=== PATIENT | male | born 1975 | race Caucasian/White ===

== ENCOUNTER → 2024-01-10 | Outpatient (CLI) | payer BC ==
--- NOTE | 2024-01-12 17:58 | US ---
EXAMINATION TYPE: US kidneys/renal and bladder DATE OF EXAM: 01/10/2024 COMPARISON: NONE CLINICAL INDICATION: Male, 48 years old with history of R71.8 OTHER ABNORMALITY OF RED BLOOD CELLS; M icroscopic hematuria. Hx renal stones. Patient states having hx of hydronephrosis. EXAM MEASUREMENTS: Right Kidney: cm Left Kidney: cm Right Kidney: Possible dilated renal pelvis Left Kidney: Possible dilated renal pelvis, renal sinus cyst versus dilated renal pyramid = 2.2 x 2.3 x 1.9 cm. Bladder: distended, anechoic Bilateral Jets seen There is no evidence for hydronephrosis at this point in time. Bilateral extrarenal pelvises. Left re nal sinus cyst versus dilated renal pyramid. No nephrolithiasis is seen. Cortical medullary different iation is maintained bilaterally. No solid masses are identified. The urinary bladder is anechoic a nd distended. Bilateral ureteral jets are seen. IMPRESSION: 1. No overt hydronephrosis or nephrolithiasis. 2. Bilateral extrarenal pelvises with a left renal sinus cyst versus dilated renal pyramid. If prior imaging could be made available, a comparison can be made. This can be further evaluated with CT urog missael.
== END | disposition home or self-care (01) ==
LOC: RADUSWWP 11:10
PROVIDERS: ATTEND Family Medicine
DX: N28.1 Cyst of kidney, acquired (principal); R71.8 Other abnormality of red blood cells
CPT/HCPCS: 76770

== ENCOUNTER → 2024-02-10 | Outpatient (CLI) | payer BC ==
--- NOTE | 2024-02-10 14:28 | CT ---
EXAMINATION TYPE: CT urogram wo/w con CT DLP: 2106.30 mGycm, Automated exposure control for dose reduction was used. DATE OF EXAM: 02/10/2024 11:11 AM COMPARISON: Renal ultrasound 01/10/2024 CLINICAL INDICATION:Male, 48 years old with history of N28.1 CYST OF KIDNEY; PHH, Hematuria. renal cy st TECHNIQUE: Urogram of the abdomen and pelvis was performed before and after the administration of 100 cc of IV c ontrast Isovue 300 contrast. Delayed imaging was performed. Coronal and sagittal reformats were perfo rmed. One or more CT dose reduction strategies were utilized during this examination. 2D and 3D recon structions are performed to assist visualization of the urinary tract on a separate workstation. FINDINGS: GENITOURINARY: RIGHT KIDNEY AND URETER: No calculi. No hydronephrosis or hydroureter. No renal mass or other lesions . No urothelial lesions: no filling defect, dilation, stricture or wall thickening. LEFT KIDNEY AND URETER: No calculi. No hydronephrosis or hydroureter. Nonenhancing benign cyst identi fied within the midportion of the left kidney measuring 3.2 x 1.7 cm (series 17, image 91). No urothe lial lesions: no filling defect, dilation, stricture or wall thickening. URINARY BLADDER: Moderately well distended. Normal, no calculi, mass or other lesions. REPRODUCTIVE: Unremarkable. ABDOMEN LIVER: Unremarkable. GALLBLADDER AND BILE DUCTS: Unremarkable PANCREAS: Unremarkable. SPLEEN: Unremarkable. ADRENAL GLANDS: Unremarkable. STOMACH AND BOWEL: No focal bowel wall thickening or stranding inflammatory changes. The appendix is within normal limits. Submucosal fat deposition within the rectum and distal colon likely from a rd project manager ephraim inflammatory process.. No evidence of bowel obstruction. PERITONEUM: No evidence of pneumoperitoneum, free fluid, or adenopathy. VASCULATURE: No aortic aneurysm. MUSCULOSKELETAL: No acute osseous abnormalities. 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 SOFT TISSUE/ABDOMINAL WALL: Small fat filled umbilical hernia. Small fat filled right inguinal hernia . LOWER CHEST: Right middle lobe 4.5 mm pulmonary nodule (series 10, image 3). Additional left lower lo be 2 mm pulmonary nodule (series 10, image 9). Consider optional CT chest in 12 months if patient is high risk. IMPRESSION: No evidence of urolithiasis or concerning renal/urothelial neoplasm. Benign cyst identified within th e midportion of the left kidney.
== END | disposition home or self-care (01) ==
LOC: RADCTMAIN 09:15
PROVIDERS: ATTEND Family Medicine
DX: N28.1 Cyst of kidney, acquired (principal)
CPT/HCPCS: 74178; 74400; Q9967

== ENCOUNTER → 2025-02-17 | Outpatient (CLI) | payer BC ==
--- NOTE | 2025-02-17 18:18 | CT ---
EXAMINATION TYPE: CT chest w con DATE OF EXAM: 02/17/2025 6:04 PM COMPARISON: CT 02/10/2024. CLINICAL INDICATION: Male, 49 years old with history of R91.8 OTHER NONSPECIFIC ABNORMAL FINDING OF L JO F; PHH, ABNORMAL FINDING ON UROGRAM TECHNIQUE: Multiple axial images were obtained through the chest. Sagittal and coronal reformats were created for review. MIP was performed on a separate workstation. Contrast used:100 mL of Isovue 300 with IV Contrast (None if empty) Oral contrast used: (None if empty) CT DLP: 345.9 mGycm, Automated exposure control for dose reduction was used. FINDINGS: LUNGS/ PLEURA: Stable right middle lobe 4 mm pulmonary nodule. No definitive left lower lobe nodule. No focal consolidation, pneumothorax or pleural effusion. AIRWAY: Patent and unremarkable. HEART: Size within normal limits. No significant coronary artery calcifications. MEDIASTINUM: No gross evidence of adenopathy. VASCULATURE: No aortic aneurysm. MUSCULOSKELETAL: Mild disc degeneration changes are present throughout the thoracolumbar spine second evgeny to osteophyte formation and facet joint arthropathy. SOFT TISSUES/LYMPH NODES: Bilateral gynecomastia changes. LOWER NECK: No significant findings. UPPER ABDOMEN: No significant findings. IMPRESSION: Stable pulmonary nodules no new or enlarging pulmonary nodules. [facility], , 02/17/2025 6:16 PM
== END | disposition home or self-care (01) ==
LOC: RADCTMAIN 17:26
PROVIDERS: ATTEND Family Medicine
DX: R91.8 Other nonspecific abnormal finding of lung field (principal)
CPT/HCPCS: 71260; Q9967